=== PATIENT | female | born 1990 | race Caucasian/White ===

== ENCOUNTER 2022-05-04 01:33 | Emergency (ER) | payer SELFPAY ==
[2022-05-04 01:59] VITALS: BP 115/61; PULSE 92; TEMP 98.3; BMI 25.0
[2022-05-04] MEDS ORDERED: methylPREDNISolone NA SUCC 125 MG/2 ML VIAL IVPUSH ONE (02:48)
[2022-05-04 02:59] LABS: HCG,QUALITATIVE URINE Negative
[2022-05-04 03:00] LABS: EPI CELLS >36 /uL (0-25.1); HYALINE CASTS 2 /uL (0-3.1); PH,URINE 5.5 (5.0-8.0); URINE APPEARANCE CLEAR; URINE BACTERIA 475 /uL (0-1359); URINE BILIRUBIN NEGATIVE (NEGATIVE); URINE COLOR YELLOW; URINE GLUCOSE (UA) NEGATIVE (NEGATIVE); URINE KETONE TRACE (NEGATIVE); URINE LEUK ESTERASE NEGATIVE (NEGATIVE); URINE NITRITE NEGATIVE (NEGATIVE); URINE PROTEIN NEGATIVE (NEGATIVE); URINE RBC 8 /uL (0-23.9); URINE UROBILINOGEN 0.2 mg/dL (0.2-1.0); URINE WBC 15 /uL (0-25.8)
[2022-05-04] MEDS ORDERED: diphenhydrAMINE HCL 25 MG CAPSULE (FP) PO ONE ×2 (03:24→03:41)
[2022-05-04] MEDS ORDERED: DEXAMETHASONE 4 MG TABLET (FP) PO ONE (03:25)
[2022-05-04] MEDS ORDERED: DEXAMETHASONE 4 MG TABLET (FP) ONE (03:42)
== END 2022-05-04 04:03 | disposition home or self-care (01) ==
LOC: JER 01:33
PROC: 3E033NZ Introduction of Analgesics, Hypnotics, Sedatives into Peripheral Vein, Percutaneous Approach (ICD-10-PCS; principal; 2022-05-04)
PROC: 3E033GC Introduction of Other Therapeutic Substance into Peripheral Vein, Percutaneous Approach (ICD-10-PCS; 2022-05-04)
DX: R21 Rash and other nonspecific skin eruption (principal)
CPT/HCPCS: 76817-TC; 81003; 84703; 99284-25